=== PATIENT | female | born 1990 | race Caucasian/White ===

== ENCOUNTER 2017-04-02 05:55 | Inpatient (IN) ==
[2017-04-02] MEDS ORDERED: Naloxone 0.4 MG/ML INJ IVP PRN (06:36)
[2017-04-02] MEDS ORDERED: Metoclopramide 10 MG/2 ML VIAL IVP PRN ×2 (06:36→11:34)
[2017-04-02] MEDS ORDERED: Famotidine 20 MG/2 ML VIAL IVP PRN (06:36)
[2017-04-02] MEDS ORDERED: CeFAZolin Premix DUPLEX 2,000 MG/50 ML BAG IVPB ONE (06:39)
[2017-04-02] MEDS ORDERED: Ringers Solution, Lactated 1,000 ML ONE ×2 (06:39→07:23)
[2017-04-02] MEDS ORDERED: Ringers Solution, Lactated 1,000 ML IVC SCH (06:45)
--- NOTE | 2017-04-02 07:15 | OB/GYN History & Physical ---
Date of Encounter: 04/02/17 Time of Encounter: 07:10 Assessment and Plan (1) 39 weeks gestation of Current visit: Yes Status: Acute (2) Delivery by elective section Current visit: Yes Status: Acute Admit for primary elective section CEFM Antibiotics as ordered Labs as ordered Dr. Garcia at bedside (3) History of fourth degree perineal laceration Current visit: Yes Status: Acute History of Present Illness HPI: Ms. Contreras is a 26 year old with EDB of 04/09/17 at 39 weeks gestation dated by early ultrasound. She presents for scheduled primary elective section. She endorses good movement and occasional contractions that she states she has had for the past six weeks. She denies LOF, vaginal bleeding. Labs: A+ GBS- Hep B- HIV- T. Palladium - Rubella immune Varicella immune Past Med Surg Social Fam HX - Social History Smoking Status: Never smoker Alcohol use: none Drug use: none - Family History Mother Hx Family Medical Disorders: No (no history reported) Obstetrical History - Pregnancies : 2 Para: 1 (2011, , 38+6 weeks, female, [id number], 4th degree laceration) Term: 1 : 0 Ab's: 0 Livin Medications and Allergies 3 Allergy/AdvReac Type Severity Reaction Status Date / Time sulfamethoxazole AdvReac Blister Verified 04/02/17 06:50 [From Bactrim] trimethoprim [From Bactrim] AdvReac Blister Verified 04/02/17 06:50 Review of System OB All systems PM: reviewed and no additional remarkable complaints except as stated Exam - Constitutional Constitutional: well developed, well nourished, no acute distress, average body habitus - HEENT HEENT: PERRL, Normocephaly, Mucus Membranes Moist - Neck Neck exam: full ROM - Lungs Respiratory exam: CTAB - Cardiovascular Cardiovascular exam: RRR, +S1, +S2 - Breasts Breast: bilateral: normal - Abdomen Abdomen: Present: bowel sounds normal, gravid, non tender - Extremities Extremities exam: normal inspection, radial pulses palpable and symmetrical - Uterus Uterus exam: Present: normal size, normal contour Results All other labs normal.
[2017-04-02] MEDS ORDERED: Morphine Sulfate/PF 5mg/10mL Vial ONE (07:20)
[2017-04-02] MEDS ORDERED: *HR* FentaNYL (PF) 100 MCG/2 ML VIAL ONE (07:21)
[2017-04-02] MEDS ORDERED: EPHEDrine 50 MG/ML VIAL ONE (07:21)
[2017-04-02] MEDS ORDERED: *HR* Phenylephrine 10 MG/ML VIAL ONE (07:23)
[2017-04-02] MEDS ORDERED: *HR* Oxytocin 10 UNIT/ML VIAL IM ONE (07:23)
[2017-04-02 07:44] LABS: Basophils % 0.2 %; Eosinophils # 0.1 K/mcL (0.0-0.6); Eosinophils % 1.3 %; Hematocrit 35.4 % (35.3-44.9); Hemoglobin 11.6 g/dL (11.5-15.4); Immature Granulocytes % 0.8 % (0-4); Lymphocytes # 1.6 K/mcL (0.6-4.6); Lymphocytes % 18.5 %; Mean Corpuscular HGB Conc 32.8 g/dL (31.6-35.5); Mean Corpuscular Hemoglobin 28.5 pg (28.0-33.3); Mean Platelet Volume 11.4 fL (9.4-12.4); Monocytes # 0.8 K/mcL (0.0-1.3); Monocytes % 9.6 %; Neutrophils # 6.1 K/mcL (1.6-8.9); Platelet Count 189 K/mcL (140-400); Red Blood Count 4.07 M/mcL (3.82-4.97); Red Cell Distribution Width 13.5 % (11.5-14.5); Segmented Neutrophils % 69.6 %
[2017-04-02] MEDS ORDERED: Dexamethasone 4 MG/ML VIAL ONE (08:22)
[2017-04-02] MEDS ORDERED: Ondansetron 4 MG/2 ML VIAL ONE (08:22)
[2017-04-02] MEDS ORDERED: Ketorolac 30 MG/ML VIAL ONE (08:23)
--- NOTE | 2017-04-02 08:38 | Anesthesia Evaluation PreOp ---
Date of Encounter: 04/02/17 Time of Encounter: 07:30 - Past History Planned Operation: PCS Cardiac History: Denies any Significant Hx Pulmonary History: Denies Any Significant HX REHABILITATION ENGINEER History: Denies Any Significant HX Other Medical History: Denies Any Significant HX : Yes Test: Positive Alcohol Use: none Drug use: none Medications and Allergies 3 Allergy/AdvReac Type Severity Reaction Status Date / Time sulfamethoxazole AdvReac Blister Verified 04/02/17 06:50 [From Bactrim] trimethoprim [From Bactrim] AdvReac Blister Verified 04/02/17 06:50 - Meds/Allergy Pre-op Review Medications Reviewed: Yes Allergies Reviewed: Yes Beta Blockers on Current Med List: No Anesthesia Results - Labs 04/02/17 06:18 Anesthesia Exam - HEENT Pupil (Motor): Pupils equal Mallampati: II Teeth: Normal Oral Opening: Greater than 3 - REHABILITATION ENGINEER LOC: Oriented REHABILITATION ENGINEER Motor: Normal RUE, Normal LUE, Normal RLE, Normal LLE, Normal Face REHABILITATION ENGINEER Sensory: Normal: RUE, LUE, RLE, LLE, Face - Cardiac Rhythm: Regular Murmur: None JVD: No Carotid Bruit: No - Pulmonary Breath Sounds: bilateral Clear Respiratory Effort: Symmetrical Anesthesia Assess/Plan ASA Score: 1 Modified [place] Scale for Level of Consciousness: Cooperative, oriented, and tranquil Anesthetic Plan: Regional Autologous Blood: No Monitoring Plan: Standard Monitors Recovery Plan: PACU
[2017-04-02] MEDS ORDERED: Ondansetron 4 MG/2 ML VIAL IVP PRN ×2 (08:39→11:34)
[2017-04-02] MEDS ORDERED: Ibuprofen 400 MG TABLET PO PRN (08:39)
[2017-04-02] MEDS ORDERED: *HR* OxyCODONE/APAP 5/325 TABLET PO PRN (08:39)
[2017-04-02 08:50] LABS: Amphetamine Screen,Urine Negative ng/mL (Cutoff=1000); Barbiturate Screen,Urine Negative ng/mL (Cutoff=200); Benzodiazepines Screen,Urine Negative ng/mL (Cutoff=200); Cannabinoid Screen,Urine Negative ng/mL (Cutoff = 50); Cocaine Screen,Urine Negative ng/mL (Cutoff= 300); Opiate Screen,Urine Negative ng/mL (Cutoff=300); Phencyclidine Screen,Urine Negative ng/mL (Cutoff=25)
--- NOTE | 2017-04-02 09:00 | OB/GYN Procedure Note ---
Section - Date of procedure: 04/02/17 Preop diagnosis: other (term , history perineal laceration, request for elective section) Post-op diagnosis: same Procedure: primary low transverse Surgeon: Shivam Garcia Estimated blood loss (cc): 400 Was there an data analysis assistant present: No Ux Specialist: Mai Lay Anesthesia Type: Spinal section complications: none Disposition: L&D Recovery Room Specimens: Placenta - (s) Infant A Delivery Date: 04/02/17 Delivery Time: Presentation: vertex Position: MEREDITH Route of delivery: other Gender: Female Viability: Viable Pounds: 6 Ounces: 12 Gram Weight: 3075 kg at 1 minute: 9 at 5 minutes: 9 Shoulder Dystocia: not encountered Placenta: complete extraction Cord: nuchal cord, 3 umbilical vessels, nuchal reduced - Narrative Narrative: Patient was taken to the operating room and placed in supine position with left uterine displacement following the administration of spinal anesthetic. Skin was then prepped and draped in usual sterile fashion, and a timeout procedure was performed. A Pfannenstiel incision was performed and extended down to the fascial layer until the abdominal cavity was entered. A bladder flap was then gently created with sharp dissection. A low transverse uterine incision was performed and extended bilaterally with bandage scissors. The membranes were then ruptured with clear fluid present. A viable female infant was delivered from a vertex presentation with scores of 9 and 9 at 1 and 5 minutes respectively and the weighed 6 pounds 12 ounces (3075 grams). The cord was clamped and cut, and the was handed to the nursery team. The placenta was manually removed. The uterine cavity was wiped clean with wet lap sponge. The uterine incision was closed in a layered fashion with 0 Vicryl suture in a running locking fashion. Good hemostasis was noted. The Paracolic gutters were then gently wiped clean with wet lap sponge. Inspection was then performed with good hemostasis still noted. The fascial layer was closed with 0 PDS Stratafix suture in a running nonlocking fashion. The subcutaneous layer was irrigated with sterile water and then closed with 4-0 Vicryl suture in a running nonlocking fashion, and continuing to close the skin in a running subcuticular fashion. A piece of Dermabond Prineo mesh was then applied over the incision site. Patient tolerated procedure well, all sponge needle and instrument counts reported as correct. Estimated blood loss was 400 mL. The urine in the Harrington catheter was clear and yellow, and she was taken to recovery room in stable condition.
[2017-04-02] MEDS ORDERED: Oxytocin 20 units/ LR 1000 mL 20 UNIT/1,000 ML BAG IVC ONE (09:39)
[2017-04-02] MEDS ORDERED: Oxytocin 20 units/ LR 1000 mL 20 UNIT/1,000 ML BAG IVC SCH (11:34)
[2017-04-02] MEDS: Ibuprofen 600 MG TABLET PO PRN (21:16)
[2017-04-03 05:40] LABS: Basophils % 0.2 %; Eosinophils # 0.1 K/mcL (0.0-0.6); Eosinophils % 0.6 %; Hematocrit 32.4 % (35.3-44.9); Hemoglobin 10.7 g/dL (11.5-15.4); Immature Granulocytes % 0.7 % (0-4); Lymphocytes # 1.1 K/mcL (0.6-4.6); Mean Corpuscular Hemoglobin 28.8 pg (28.0-33.3); Mean Corpuscular Volume 87.1 fL (83.0-100.0); Mean Platelet Volume 11.2 fL (9.4-12.4); Monocytes # 1.1 K/mcL (0.0-1.3); Neutrophils # 10.1 K/mcL (1.6-8.9); Platelet Count 168 K/mcL (140-400); Red Blood Count 3.72 M/mcL (3.82-4.97); Red Cell Distribution Width 13.5 % (11.5-14.5); Segmented Neutrophils % 80.5 %
[2017-04-03] MEDS: *HR* OxyCODONE/APAP 5/325 TABLET PO PRN ×4 (06:38→19:33)
[2017-04-03] MEDS: Prenatal Vit/FA 1 EACH TABLET PO SCH (08:32)
[2017-04-03] MEDS: Ibuprofen 600 MG TABLET PO PRN ×2 (08:33→19:32)
--- NOTE | 2017-04-03 08:50 | OB/GYN Progress Note ---
Date of Encounter: 04/03/17 Time of Encounter: 08:49 - Assessment and Plan (1) Delivery by elective section Current Visit: Yes Status: Acute Continue routine postop/ care possible discharge home tomorrow Subjective - Subjective Principal diagnosis: Postop/ day 1 Interval history: Patient was a scheduled primary elective section after having a 4th degree laceration with previous delivery. Patient reports passing flatus. Patient reports pain is well controlled with oral medication. Patient reports: appetite normal, voiding normally, pain well controlled, ambulating normally [place]: doing well, bottle feeding Objective - Vital Signs Latest vital signs: Vital Signs Temp Pulse Resp BP Pulse Ox 04/03/17 08:02 98.2 F 83 16 94/60 04/03/17 06:35 98.0 F 88 14 87/55 98 04/03/17 00:35 98.2 F 74 15 93/56 96 04/02/17 20:55 98.3 F 81 14 98/64 95 04/02/17 17:42 16 04/02/17 17:15 98.1 F 82 16 111/65 96 04/02/17 14:00 97.7 F 76 16 109/64 96 04/02/17 12:59 16 04/02/17 12:57 98.0 F 101 16 105/62 04/02/17 12:00 98.3 F 79 16 93/57 04/02/17 11:30 97.7 F 74 16 112/64 98 04/02/17 11:00 97.9 F 76 16 107/64 99 Intake and Output 04/02/17 04/03/17 04/03/17 23:59 07:59 15:59 Intake Total 800 / 800 Output Total 400 / 400 1600 / 1600 Balance -400 / -400 -1600 / -1600 800 / 800 Intake: Oral 800 / 800 Output: Catheter 400 / 400 1600 / 1600 - Exam Lungs: bilateral: normal Chest: Normal S1, Normal S2 Extremities: Present: normal Abdomen: Present: normal appearance, soft, gravid Incision: Present: normal, dry, intact, dressed (medipore dressing) Uterus: Present: normal, firm Fundal Height: 2 (U/2) - Labs Labs: Laboratory Results - last 24 hr 04/02/17 04/03/17 06:18 05:26 WBC 12.6 H RBC 3.72 L Hgb 10.7 L Hct 32.4 L MCV 87.1 MCH 28.8 MCHC 33.0 RDW 13.5 Plt Count 168 MPV 11.2 Immature Gran % 0.7 Seg Neutrophils % 80.5 Lymphocytes % 9.0 Monocytes % 9.0 Eosinophils % 0.6 Basophils % 0.2 Neutrophils # 10.1 H Lymphocytes # 1.1 Monocytes # 1.1 Eosinophils # 0.1 Basophils # 0.0 Urine Opiates Screen Negative Ur Barbiturates Screen Negative Ur Phencyclidine Scrn Negative Ur Amphetamines Screen Negative U Benzodiazepines Scrn Negative Urine Cocaine Screen Negative U Marijuana (THC) Screen Negative
[2017-04-03] MEDS: Simethicone 80 MG TAB.CHEW PO PRN (19:41)
[2017-04-04] MEDS: *HR* OxyCODONE/APAP 5/325 TABLET PO PRN ×3 (00:25→10:08)
[2017-04-04] MEDS: Ibuprofen 600 MG TABLET PO PRN (05:40)
[2017-04-04] MEDS: Simethicone 80 MG TAB.CHEW PO PRN (08:04)
[2017-04-04 08:18] VITALS: BP 99/63
[2017-04-04] MEDS ORDERED: *HR* OxyCODONE Immed Rel 5 MG TABLET PO PRN (08:32)
--- NOTE | 2017-04-04 08:52 | Discharge Summary ---
Date of Encounter: 04/04/17 Time of Encounter: 08:47 - Discharge Diagnosis (1) Delivery by elective section Priority: Primary Status: Acute Comments: Doing well s/p section Day 2. Pain is well controlled; c/o burning nerve pain along incision Lochia is light and without clots Tolerating regular diet, passing flatus Voiding without difficulty Bottle feeding VSS Discharge home today with baby - Discharge Medications Prescriptions: Ibuprofen [Motrin] 600 mg PO Q6HR PRN #30 tablet PRN Reason: Cramping OxyCODONE/APAP 5/325 [Percocet 5/325 MG] 1 each PO Q6HR PRN 5 Days #21 tablet PRN Reason: Moderate pain 4-6 Docusate [Colace] 100 mg PO BID #30 capsule Ferrous Sulfate 325 mg PO DAILY #60 tablet Home Medications: Docusate [Colace] 100 mg PO BID #30 capsule 04/04/17 [Rx] Ferrous Sulfate 325 mg PO DAILY #60 tablet 04/04/17 [Rx] Ibuprofen [Motrin] 600 mg PO Q6HR PRN #30 tablet 04/04/17 [Rx] OxyCODONE/APAP 5/325 [Percocet 5/325 MG] 1 each PO Q6HR PRN 5 Days #21 tablet [Rx] Vit/FA 1 each PO DAILY tablet 04/04/17 [Rx] Simethicone [Gas-X] 80 mg PO TID PRN tab.chew 04/04/17 [Rx] Allergies/Adverse Reactions: 3 Allergy/AdvReac Type Severity Reaction Status Date / Time sulfamethoxazole AdvReac Blister Verified 04/02/17 06:50 [From Bactrim] trimethoprim [From Bactrim] AdvReac Blister Verified 04/02/17 06:50 Data Procedures and tests throughout hospitalization: Laboratory Tests 04/02/17 04/02/17 04/03/17 06:18 06:18 05:26 WBC 8.7 12.6 H RBC 4.07 3.72 L Hgb 11.6 10.7 L Hct 35.4 32.4 L MCV 87.0 87.1 MCH 28.5 28.8 MCHC 32.8 33.0 RDW 13.5 13.5 Plt Count 189 168 MPV 11.4 11.2 Immature Gran % 0.8 0.7 Seg Neutrophils % 69.6 80.5 Lymphocytes % 18.5 9.0 Monocytes % 9.6 9.0 Eosinophils % 1.3 0.6 Basophils % 0.2 0.2 Neutrophils # 6.1 10.1 H Lymphocytes # 1.6 1.1 Monocytes # 0.8 1.1 Eosinophils # 0.1 0.1 Basophils # 0.0 0.0 Urine Opiates Screen Negative Ur Barbiturates Screen Negative Ur Phencyclidine Scrn Negative Ur Amphetamines Screen Negative U Benzodiazepines Scrn Negative Urine Cocaine Screen Negative U Marijuana (THC) Screen Negative Date of admission: 04/02/17 05:55 Primary care physician: Lizeth Urias Discharging clinician: Heather Valenzuela Anticipated date of discharge: 04/04/17 - Patient Status Disposition: Home, Self-Care Condition: Good Functional capacity at discharge: independent ambulation Overall status at discharge: patient is progressing back to baseline - Discharge Instructions Follow Up With: Lizeth Urias MD [Primary Care Provider] - Shivam Garcia DO [Partnered Physician] - - Diet and Activity Activity: increase activity as tolerated Diet: regular diet Hospital Course Reason for admission: IUP at term Delivery: Episiotomy: none Laceration: none Other procedures: none complications: none Discharge diagnosis: IUP at term delivered [place] baby: female Time Attestation: Total time spent providing and/or coordinating discharge services: Time Spent: Less than 30 minutes - VTE Documentation of Mechanical Device: Intermittent pneumatic compression device Exam - Constitutional Vitals: Temp Pulse Resp BP Pulse Ox 98.5 F 72 16 99/63 96 04/04/17 07:30 04/04/17 07:30 04/04/17 07:30 04/04/17 07:30 04/03/17 19:30 General appearance IM: cooperative, A&O X 3, pleasant - Respiratory Respiratory exam: Present: CTAB - Cardiovascular Cardiovascular exam IM: Present: RRR, +S1, +S2 - GI/Abdominal GI/Abdominal exam IM: normal bowel sounds Incision: normal, dry, intact - Rectal Rectal exam: deferred - Uterine Tone: Firm Uterus Position: 1 Finger Below Umbilicus, Midline - Extremities Exam Extremities exam IM: Present: normal capillary refill, normal inspection, pedal edema (trace), radial pulses palpable and symmetrical - Neurological Exam Neurological exam: alert, oriented X3, reflexes normal
[2017-04-04] MEDS: Prenatal Vit/FA 1 EACH TABLET PO SCH (10:09)
== END 2017-04-04 12:00 | disposition home or self-care (01) | DRG 766 ==
LOC: 1NENULAB 05:55 → 1NENUOBS 11:26